=== PATIENT | female | born 1980 | race Caucasian/White ===

== ENCOUNTER → 2017-10-05 20:00 | Observation (INO) ==
--- NOTE | 2017-10-05 19:13 | OB/GYN Progress Note ---
Date of Encounter: 10/05/17 Time of Encounter: 19:13 - Assessment and Plan (1) with 37 or more completed weeks gestation Current Visit: Yes Status: Acute FHT: 150bpm with 15x15 accels, no decels. Positive mucus plug loss, no VB or LOF. No contractions. (2) Feeling pelvic pressure during in third trimester, antepartum Current Visit: Yes Status: Acute Patient c/o increasing pelvic pressure over the past 2-3 weeks. Patient also checked her blood pressure at home and stated she had a "high" reading. However , today her BP is 117/81 with no symptoms of PIH and stable. Patient is 2/70/- 1. Discharged home discussed with patient labor and when to return to triage precautions including high blood pressure, headache, vision changes, epigastric pain, edema or any concerning symptoms. Subjective - Subjective Principal diagnosis: elevated blood pressure; Interval history: Patient is a 37F currently 37+6 presenting with complaint of elevated blood pressure. [id number] took her blood pressure at home and stated it was "high" so she came in. She has no other complaints except for pelvic pressure. Reports good movement, denies contractions, vaginal bleeding or leaking of fluid. Denies any abdominal pain, headache, vision loss, epigastric pain, edema, Patient states she did lose her mucus plug tonight. Antepartum ROS: new complaints, movement normal, no loss of fluid, no vaginal bleeding, no contractions Objective - Vital Signs Vital Signs: Intake and Output 10/05/17 10/05/17 10/05/17 07:59 15:59 23:59 Other: Weight 67.8 kg Patient Weight 10/05/17 23:59 Weight 67.8 kg - Exam FHR: auscultation normal, category 1 FHR comments: FHR: 150 with 15x15 accels, no decels Auscultation: bilateral: normal Abdomen: Present: normal appearance, soft, gravid Uterus: Present: normal, firm. Absent: tenderness Cervical dilation: 2 cm Cervix effacement: 70% station: -1
== END | disposition home or self-care (01) ==
LOC: 1NENULAB
PROVIDERS: ADMIT Student in an Organized Health Care Education/Training Program; ATTEND Student in an Organized Health Care Education/Training Program

== ENCOUNTER 2017-10-17 09:30 | Inpatient (IN) ==
[2017-10-17] MEDS ORDERED: Naloxone 0.4 MG/ML INJ IVP PRN (10:01)
[2017-10-17] MEDS ORDERED: *HR* Nalbuphine 20 MG/ML AMPUL IVP PRN (10:01)
[2017-10-17] MEDS ORDERED: Ondansetron 4 MG/2 ML VIAL IVP PRN (10:01)
[2017-10-17] MEDS ORDERED: Metoclopramide 10 MG/2 ML VIAL IVP PRN (10:01)
[2017-10-17] MEDS ORDERED: Famotidine 20 MG/2 ML VIAL IVP PRN (10:01)
[2017-10-17] MEDS ORDERED: Ringers Solution, Lactated 1,000 ML IVC SCH (10:15)
[2017-10-17] MEDS ORDERED: miSOPROStol 25 MCG TABLET PO PRN (11:08)
[2017-10-17 11:13] LABS: Basophils % 0.5 %; Eosinophils # 0.1 K/mcL (0.0-0.6); Eosinophils % 0.6 %; Hematocrit 37.4 % (35.3-44.9); Hemoglobin 12.8 g/dL (11.5-15.4); Immature Granulocytes % 0.8 % (0-4); Lymphocytes # 0.9 K/mcL (0.6-4.6); Mean Corpuscular HGB Conc 34.2 g/dL (31.6-35.5); Mean Corpuscular Volume 90.6 fL (83.0-100.0); Mean Platelet Volume 11.8 fL (9.4-12.4); Monocytes # 0.5 K/mcL (0.0-1.3); Monocytes % 6.1 %; Neutrophils # 6.9 K/mcL (1.6-8.9); Platelet Count 139 K/mcL (140-400); Red Blood Count 4.13 M/mcL (3.82-4.97); Red Cell Distribution Width 13.1 % (11.5-14.5)
[2017-10-17] MEDS ORDERED: Oxytocin 20 units/ LR 1000 mL 20 UNIT/1,000 ML BAG IVC SCH ×2 (11:15→22:30)
[2017-10-17 11:20] LABS: Amphetamine Screen,Urine Negative ng/mL (Cutoff=1000); Barbiturate Screen,Urine Negative ng/mL (Cutoff=200); Benzodiazepines Screen,Urine Negative ng/mL (Cutoff=200); Cannabinoid Screen,Urine Negative ng/mL (Cutoff = 50); Cocaine Screen,Urine Negative ng/mL (Cutoff= 300); Opiate Screen,Urine Negative ng/mL (Cutoff=300); Phencyclidine Screen,Urine Negative ng/mL (Cutoff=25)
--- NOTE | 2017-10-17 11:20 | OB/GYN History & Physical ---
Date of Encounter: 10/17/17 Time of Encounter: 11:15 Assessment and Plan (1) 39 weeks gestation of Current visit: Yes Status: Acute at 39w3d EGA here for IOL + FM, intermittent contractions. No LOF or vaginal bleeding monitoring - category I LR 125 ml/hr PO cytotec Expect (2) Positive GBS test Current visit: Yes Status: Acute PCN prophylaxis (3) Advanced maternal age (AMA) in Current visit: Yes Status: Acute History of Present Illness Chief complaint: Induction of Labor HPI: Ms. Hyatt is a 37 year old female at 39w3d presenting to L&D for induction of labor for advanced maternal age. She reports that she is doing well with no complaints. She reports good movement and is feeling mild intermittent contractions. She denies vaginal discharge, vaginal bleeding, or loss of fluid. She reports no problems with this , but had pre- eclampsia with a previous . She denies fevers, chills, headaches, changes in vision, chest pain, dyspnea, abdominal pain, dysuria, or lower extremity edema. Blood type O negative GBS positive Rubella Immune Varicella Immune All other serologies negative Past Med Surg Social Fam HX - Past Medical History Source: patient Medical history: no medical history Psychiatric history: no psych history - Past Surgical History Surgical History: other - Social History Smoking Status: Former smoker Smokeless Tobacco Status: No Alcohol use: occasionally Drug use: none - Family History Mother Adopted: No Living Status: Still Living Hx Family Cardiac Disorders: No Hx Family Respiratory Disorders: No Hx Family Cancer: No Hx Family GI Disorders: No Hx Family Endocrine Disorder: No Hx Family Neuromuscular Disorders: No Hx Family Neurologic Disorders: No Hx Family HEENT Disorders: No Hx Family Autoimmune Disorders: No Obstetrical History - Pregnancies : 4 Para: 1 Term: 1 : 0 Ab's: 2 Livin - History/Complications History/Complications: AMA Medications and Allergies Formula Tablet 1 / PO DAILY 10/05/17 [History] 3 Allergy/AdvReac Type Severity Reaction Status Date / Time No Known Allergies Allergy Verified 10/05/17 18:58 Review of System OB All systems PM: reviewed and no additional remarkable complaints except as stated Exam - Constitutional Constitutional: well developed, well nourished, no acute distress, average body habitus - HEENT HEENT: Normocephaly, Mucus Membranes Moist - Lungs Respiratory exam: CTAB - Cardiovascular Cardiovascular exam: RRR, +S1, +S2 - Abdomen Abdomen: Present: bowel sounds normal - Extremities Extremities exam: normal capillary refill, normal inspection - Vulva Vulva: bilateral: normal - Vagina Vagina: Present: normal moisture - Cervix Dilation: 3 (per RN) Effacement: 80 Station: -2 - Uterus Uterus exam: Present: normal size, normal contour - Anus/Rectum Anus/Rectum: Present: normal perianal skin - Comments Comments: FHT baseline 135 with accels - category I [place] irregular Results Result Diagrams: 10/17/17 11:00 Abnormal lab results Plt Count 139 K/mcL (140-400) L 10/17/17 11:00 All other labs normal. - VTE Reasons for not Prescribing Prophylaxis: Treatment not Indicated - Low risk for VTE - Attending Attestation I examined this patient and my medical decision-making was reviewed with the Resident Physician. I agree with the documented findings, disposition and treatment plan as described except to the extent set forth below. Chelita Portillo DO
[2017-10-17] MEDS ORDERED: Penicillin G Potassium 5,000,000 UNIT in D5% in Water (Mini-Bag+) 100 ML IVPB ONE (11:30)
--- NOTE | 2017-10-17 11:32 | Anesthesia Evaluation PreOp ---
Date of Encounter: 10/17/17 Time of Encounter: 11:26 - Past History Planned Operation: vaginal del, , induction Cardiac History: Denies any Significant Hx Pulmonary History: Denies Any Significant HX PHARMACIST IN CHARGE OWNER History: Other (RLS) Other Medical History: Denies Any Significant HX Anesthesia History: No Prior Anesthetic Complications (no epidural with first delivery. does not desire one with this del at this time.) : Yes Alcohol Use: occasionally Drug use: none Medications and Allergies Formula Tablet 10/05/17 [History] 3 Allergy/AdvReac Type Severity Reaction Status Date / Time No Known Allergies Allergy Verified 10/05/17 18:58 Anesthesia Results - Labs 10/17/17 11:00 Anesthesia Exam - HEENT Pupil (Motor): Pupils equal Mallampati: I Teeth: Normal Oral Opening: Greater than 3 - PHARMACIST IN CHARGE OWNER LOC: Oriented PHARMACIST IN CHARGE OWNER Motor: Normal RUE, Normal LUE, Normal RLE, Normal LLE, Normal Face PHARMACIST IN CHARGE OWNER Sensory: Normal: RUE, LUE, RLE, LLE, Face - Cardiac Rhythm: Regular Murmur: None - Pulmonary Breath Sounds: bilateral Clear Respiratory Effort: Symmetrical Anesthesia Assess/Plan ASA Score: 2 Modified [place] Scale for Level of Consciousness: Cooperative, oriented, and tranquil Anesthetic Plan: General, Regional (if patient desires.) Monitoring Plan: Standard Monitors
[2017-10-17] MEDS ORDERED: Penicillin G Potassium 5,000,000 UNIT in 0.9 % Sodium Chloride Mini Bag 100 ML IVPB ONE (12:00)
[2017-10-17] MEDS ORDERED: Penicillin G Potassium 2,500,000 UNIT in D5% in Water 100 ML IVPB SCH (15:30)
--- NOTE | 2017-10-17 17:47 | OB Labor Progress Note ---
Date of Encounter: 10/17/17 Time of Encounter: 17:43 Labor Progress Note - Subjective Subjective: Pain well controlled - Vital Signs Vital Signs: VSS - Cervix Cervix: 4-5/80/-1 - Heart Tones Heart Tones: FHTs 130 moderate variability and 15 x 15 accels. - [place]: COntractions every 2-4 minutes - Interventions Interventions: AROM for moderate amount of clear fluid. Patient and fetus tolerated well. - Plan Plan: Continue routine labor management GBS positive - continue PCN prophylaxis. Pitocin for labor augmentation - currently running at 6mu/min Pain is well controlled. Patient may have nubain and/or epidural upon request Anticipate vaginal delivery POC per consult with Dr Portillo
[2017-10-17] MEDS ORDERED: Lidocaine 1% 20 ML MDV ONE (19:55)
--- NOTE | 2017-10-17 20:35 | OB/GYN Procedure Note ---
Delivery - Delivery Date: 10/17/17 Provider: Chelita Portillo Intrapartum events: none Delivery induction: AROM, oxytocin, misoprostol Delivery monitor: external FHT, external uterine Anesthesia: none Estimated Blood Loss: 50 - Infant (s) Infant A Infant Delivery Date: 10/17/17 Infant Delivery Time: 20:05 Presentation: vertex Position: ALICE Route of delivery: Gender: Female Viability: Viable Pounds: 7 Ounces: 0 Weight Gram: 3.185 kg at 1 minute: 8 at 5 mins: 9 Shoulder Dystocia: not encountered Specimens collected: cord blood Placenta: spontaneous Cord: 3 umbilical vessels - Repair Episiotomy: none Laceration Description: Perineal - 1st Degree, Labial - Complications Delivery complications: none Delivery comments: Called to room with patient complete and +2 station. Under maternal effort she delivered a viable female weighing 7 pounds and Apgars 8 and 9 at one and 5 minutes respectively over a first-degree perineal laceration. Following delivery of the head there is no nuchal cord or shoulder dystocia encountered. The infant body delivered and was placed on mom's abdomen. Cord was allowed to cease pulsation and was double clamped and cut. Placenta delivered spontaneously , complete, and intact with a three-vessel cord. First-degree perineal laceration and right labial laceration were hemostatic without repair. Mother and are recovering in the LDR in stable condition. - Disposition Mom disposition: stable in LDR disposition: stable in LDR
[2017-10-17] MEDS ORDERED: Rho Immune Globulin 1,500 UNIT SYRINGE IM PRN (22:30)
[2017-10-17] MEDS ORDERED: Ibuprofen 600 MG TABLET PO PRN (22:30)
[2017-10-17] MEDS ORDERED: Acetaminophen 325 MG TABLET PO PRN (22:30)
--- NOTE | 2017-10-18 08:44 | Discharge Summary ---
Date of Encounter: 10/18/17 Time of Encounter: 08:41 - Discharge Diagnosis (1) Vaginal delivery Priority: Primary Status: Acute Comments: Continue routine care discharge home today follow up with Dr. Portillo in 4-6 weeks (2) Breast feeding status of mother Priority: Secondary Status: Acute Comments: support prn - Discharge Medications Home Medications: Docusate [Colace] 100 mg PO BID capsule 10/18/17 [Rx] Ibuprofen [Motrin] 600 mg PO Q6HR PRN tablet 10/18/17 [Rx] Vit/FA 1 each PO DAILY tablet 10/18/17 [Rx] Allergies/Adverse Reactions: 3 Allergy/AdvReac Type Severity Reaction Status Date / Time No Known Allergies Allergy Verified 10/05/17 18:58 Data Procedures and tests throughout hospitalization: Laboratory Tests 10/17/17 10/17/17 10/17/17 11:00 11:00 20:40 WBC 8.5 RBC 4.13 Hgb 12.8 Hct 37.4 MCV 90.6 MCH 31.0 MCHC 34.2 RDW 13.1 Plt Count 139 L MPV 11.8 Immature Gran % 0.8 Seg Neutrophils % 81.0 Lymphocytes % 11.0 Monocytes % 6.1 Eosinophils % 0.6 Basophils % 0.5 Neutrophils # 6.9 Lymphocytes # 0.9 Monocytes # 0.5 Eosinophils # 0.1 Basophils # 0.0 Urine Opiates Screen Negative Ur Barbiturates Screen Negative Ur Phencyclidine Scrn Negative Ur Amphetamines Screen Negative U Benzodiazepines Scrn Negative Urine Cocaine Screen Negative U Marijuana (THC) Screen Negative Screen NEGATIVE Baby's Blood Type O RH POSITIVE Mother's Blood Type O RH NEGATIVE Rhogam Indicated YES Rhogam Req for Mother 1 Labs on day of discharge: Labs from last 24 hours 10/17/17 10/17/17 10/17/17 20:40 11:00 11:00 WBC 8.5 RBC 4.13 Hgb 12.8 Hct 37.4 MCV 90.6 MCH 31.0 MCHC 34.2 RDW 13.1 Plt Count 139 L MPV 11.8 Immature Gran % 0.8 Seg Neutrophils % 81.0 Lymphocytes % 11.0 Monocytes % 6.1 Eosinophils % 0.6 Basophils % 0.5 Neutrophils # 6.9 Lymphocytes # 0.9 Monocytes # 0.5 Eosinophils # 0.1 Basophils # 0.0 Urine Opiates Screen Negative Ur Barbiturates Screen Negative Ur Phencyclidine Scrn Negative Ur Amphetamines Screen Negative U Benzodiazepines Scrn Negative Urine Cocaine Screen Negative U Marijuana (THC) Screen Negative Screen NEGATIVE Baby's Blood Type O RH POSITIVE Mother's Blood Type O RH NEGATIVE Rhogam Indicated YES Rhogam Req for Mother 1 Date of admission: 10/17/17 09:56 Primary care physician: PCP NONE Consults: 10/17/17 22:30 Consult to Assistant Quality Manager [CONS] Routine Comment: Vaginal delivery, consult needed Discharging clinician: Perla Tovar Anticipated date of discharge: 10/18/17 - Patient Status Disposition: Home, Self-Care Condition: Good Functional capacity at discharge: independent ambulation - Discharge Instructions Follow Up With: NONE,PCP [Primary Care Provider] - Chelita Portillo DO [Partnered Physician] - - Diet and Activity Activity: increase activity as tolerated Diet: regular diet Hospital Course Reason for admission: active labor Delivery: Episiotomy: none Laceration: 1st degree Other procedures: none complications: none Discharge diagnosis: IUP at term delivered baby: female (breast feeding) Time Attestation: Total time spent providing and/or coordinating discharge services: Time Spent: Less than 30 minutes Exam - Constitutional Vitals: Temp Pulse Resp BP Pulse Ox 97.6 F 86 16 109/72 96 10/18/17 08:30 10/18/17 08:30 10/18/17 08:30 10/18/17 08:30 10/18/17 00:50 General appearance IM: A&O X 3, pleasant, answers questions appropriately - Respiratory Respiratory exam: Present: CTAB - Cardiovascular Cardiovascular exam IM: Present: RRR, +S1, +S2 - GI/Abdominal GI/Abdominal exam IM: normal bowel sounds - Uterine Tone: Firm Uterus Position: 1 Finger Below Umbilicus, Midline - Extremities Exam Extremities exam IM: Present: full ROM, normal capillary refill, normal inspection - Neurological Exam Neurological exam: alert, oriented X3, reflexes normal
[2017-10-18] MEDS ORDERED: Prenatal Vit/FA 1 EACH TABLET PO SCH (09:00)
[2017-10-18 17:07] VITALS: BP 111/70
== END 2017-10-18 20:21 | disposition home or self-care (01) | DRG 775 ==
LOC: 1NENULAB 09:56 → 1NENUOBS 22:30
PROVIDERS: ADMIT Obstetrics & Gynecology; ATTEND Obstetrics & Gynecology

== ENCOUNTER 2020-03-11 12:11 | Inpatient (IN) ==
[2020-03-11] MEDS ORDERED: miSOPROStoL 25 MCG TABLET PO PRN (13:08)
[2020-03-11] MEDS ORDERED: Penicillin G Potassium 5,000,000 UNIT in 0.9 % Sodium Chloride Mini Bag 100 ML IVPB ONE (13:08)
[2020-03-11] MEDS ORDERED: Famotidine 20 MG/2 ML VIAL IVP PRN (13:08)
[2020-03-11] MEDS ORDERED: Naloxone 0.4 MG/ML INJ IVP PRN (13:08)
[2020-03-11] MEDS ORDERED: Metoclopramide 10 MG/2 ML VIAL IVP PRN (13:08)
[2020-03-11] MEDS ORDERED: Ringers Solution, Lactated 1,000 ML ONE (13:47)
[2020-03-11 13:51] LABS: Basophils % 0.4 %; Eosinophils # 0.1 K/mcL (0.0-0.6); Hematocrit 37.3 % (35.3-44.9); Hemoglobin 12.3 g/dL (11.5-15.4); Immature Granulocytes % 0.6 % (0-4); Lymphocytes # 0.9 K/mcL (0.6-4.6); Lymphocytes % 13.3 %; Mean Corpuscular Hemoglobin 30.4 pg (28.0-33.3); Mean Corpuscular Volume 92.1 fL (83.0-100.0); Mean Platelet Volume 11.8 fL (9.4-12.4); Monocytes # 0.6 K/mcL (0.0-1.3); Monocytes % 8.4 %; Neutrophils # 5.1 K/mcL (1.6-8.9); Platelet Count 165 K/mcL (140-400); Red Blood Count 4.05 M/mcL (3.82-4.97); Red Cell Distribution Width 13.2 % (11.5-14.5); Segmented Neutrophils % 76.3 %; White Blood Count 6.7 K/mcL (4.3-11.1)
[2020-03-11 14:05] LABS: Amphetamine Screen,Urine Negative ng/mL (Cutoff=1000); Barbiturate Screen,Urine Negative ng/mL (Cutoff=200); Benzodiazepines Screen,Urine Negative ng/mL (Cutoff=200); Cannabinoid Screen,Urine Negative ng/mL (Cutoff = 50); Cocaine Screen,Urine Negative ng/mL (Cutoff= 300); Opiate Screen,Urine Negative ng/mL (Cutoff=300); Phencyclidine Screen,Urine Negative ng/mL (Cutoff=25)
[2020-03-11] MEDS: Ringers Solution, Lactated 1,000 ML IVC SCH ×2 (14:08→22:30)
[2020-03-11] MEDS: Penicillin G Potassium 2,500,000 UNIT in 0.9 % Sodium Chloride 100 ML IVPB SCH ×2 (18:14→22:30)
[2020-03-11] MEDS ORDERED: Oxytocin 20 units/ LR 1000 mL 20 UNIT/1,000 ML BAG IVC SCH (18:45)
[2020-03-11] MEDS: *HR* FentaNYL (PF) 100 MCG/2 ML VIAL IVP PRN (22:27)
[2020-03-12] MEDS: *HR* FentaNYL (PF) 100 MCG/2 ML VIAL IVP PRN (00:07)
[2020-03-12] MEDS ORDERED: Oxytocin 20 units/ LR 1000 mL 20 UNIT/1,000 ML BAG IVC ONE (01:08)
[2020-03-12] MEDS ORDERED: Ibuprofen 600 MG TABLET PO PRN (01:08)
[2020-03-12] MEDS ORDERED: Benzocaine/Menthol 56 GM AEROSOL SPRAY TP PRN (01:08)
[2020-03-12] MEDS ORDERED: Lanolin 7 G OINT...G. TP PRN (01:08)
[2020-03-12] MEDS ORDERED: Rho Immune Globulin 1,500 UNIT SYRINGE IM PRN (01:08)
[2020-03-12] MEDS ORDERED: Measles/Mumps/Rubella Vacc 0.5 ML VIAL SQ PRN (01:08)
[2020-03-12] MEDS ORDERED: Oxytocin 20 units/ LR 1000 mL 20 UNIT/1,000 ML BAG IVC SCH (01:08)
[2020-03-12] MEDS ORDERED: Acetaminophen 325 MG TABLET PO PRN (01:08)
[2020-03-12 08:02] LABS: Basophils % 0.2 %; Eosinophils # 0.1 K/mcL (0.0-0.6); Eosinophils % 0.7 %; Hematocrit 32.2 % (35.3-44.9); Immature Granulocytes % 0.4 % (0-4); Lymphocytes % 9.3 %; Mean Corpuscular HGB Conc 32.9 g/dL (31.6-35.5); Mean Corpuscular Hemoglobin 30.5 pg (28.0-33.3); Mean Corpuscular Volume 92.8 fL (83.0-100.0); Mean Platelet Volume 12.1 fL (9.4-12.4); Monocytes # 0.7 K/mcL (0.0-1.3); Monocytes % 6.8 %; Neutrophils # 8.6 K/mcL (1.6-8.9); Platelet Count 148 K/mcL (140-400); Red Blood Count 3.47 M/mcL (3.82-4.97); Red Cell Distribution Width 13.2 % (11.5-14.5); Segmented Neutrophils % 82.6 %
[2020-03-12 08:07] LABS: Hemoglobin 10.6 g/dL (11.5-15.4); White Blood Count 10.4 K/mcL (4.3-11.1)
[2020-03-12] MEDS: Prenatal Vit/FA 1 EACH TABLET PO SCH (08:09)
[2020-03-13 07:49] VITALS: BP 113/76
[2020-03-13] MEDS: Prenatal Vit/FA 1 EACH TABLET PO SCH (09:32)
== END 2020-03-13 12:31 | disposition home or self-care (01) | DRG 807 ==
LOC: 1NENULAB 12:11 → 1NENUOBS 03-12 03:00
PROVIDERS: ADMIT Obstetrics & Gynecology; ATTEND Obstetrics & Gynecology